=== PATIENT | female | born 1940 | race Caucasian/White ===

== ENCOUNTER 2020-10-01 14:55 | Inpatient (IN) ==
[2020-10-01] MEDS ORDERED: IOPAMIDOL 100 ML BOTTLE IV ONE (14:56)
--- NOTE | 2020-10-01 15:32 | Cat Scan Report ---
History: Stroke symptoms beginning on Thursday, prior history of skin cancer TECHNIQUE: The brain was imaged without contrast at 2.5 mm intervals. The radiation exposure was limited using dose reduction technology. FINDINGS: There is a loss of donovan-white matter differentiation laterally in the left parietal lobe, near the level of the each of the left lateral ventricle. This may represent an acute/subacute nonhemorrhagic infarct. Measures approximately 2 cm in size. There is mild edema in this region. There are chronic ischemic or degenerative changes in the external capsules bilaterally and mild white matter disease in the centrum semiovale in the frontal and parietal lobes. There is no hemorrhage or mass effect. Mild generalized atrophy is present. The ventricles are normal in size. No abnormal extra-axial fluid collection is present. Bone windows show no skull lesion. IMPRESSION: Recent nonhemorrhagic infarct anteriorly and laterally in the left parietal lobe. Age-related degenerative changes Dr. Rivera was called with the report Interpreted and Authenticated by: Kin Guzman 10/01/20
[2020-10-01 15:42] LABS: POC Blood Urea Nitrogen 15 mg/dL (6-20); POC CO2 29 mmol/L (22-30); POC Calcium, Ionized 1.25 mmEq/L (1.16-1.32); POC Chloride 100 mEq/L (96-108); POC Creatinine 1.1 mg/dL (0.6-1.2); POC Glucose, Random 87 mg/dL (70-105); POC Hematocrit 39 % (36-48); POC Sodium 138 mEq/L (133-145)
[2020-10-01 15:58] LABS: POC INR 1.1 (0.8-1.2); POC Pro Time 12.9 sec (11.9-14.5)
[2020-10-01 16:17] LABS: Basophils # (Auto) 0.09 K/mcL (0.00-0.20); Basophils % (Auto) 1.2 % (0.0-2.0); Eosinophils # (Auto) 0.22 K/mcL (0.00-0.70); Eosinophils % (Auto) 2.8 % (0.0-7.0); Hematocrit 37.7 % (36.0-48.0); Hemoglobin 12.4 g/dL (12.0-15.0); Lymphocytes # (Auto) 1.62 K/mcL (1.50-4.80); Lymphocytes % (Auto) 20.7 % (15.0-49.0); Mean Cell Volume 96.4 fL (80.0-100.0); Mean Corpuscular HGB Conc 32.9 g/dL (31.0-36.0); Mean Platelet Volume 9.8 fL (7.4-10.4); Monocytes # (Auto) 0.96 K/mcL (0.10-0.90); Monocytes % (Auto) 12.3 % (1.0-12.0); Platelet Count 288 K/mcL (140-440); RBC 3.91 M/mcL (4.00-5.20); Red Cell Distribution Width 12.2 % (11.5-14.5); WBC 7.8 K/mcL (4.5-11.0)
[2020-10-01 16:34] LABS: Partial Thromboplastin Time 33.2 sec (20.0-37.0)
[2020-10-01] MEDS ORDERED: ASPIRIN 325 MG ENTERIC COATED TABLET PO ONE (17:33)
--- NOTE | 2020-10-01 17:37 | Emergency Department Note ---
HPI General Chief complaint: Stroke Symptoms Stated complaint: possible TIA Time Seen by Provider: 10/01/20 15:01 Source: patient Mode of arrival: ambulatory Limitations: no limitations History of Present Illness HPI Narrative: Patient is a 80-year-old lady who arrives emergency department by private vehicle accompanied by her daughter complaining of strokelike symptoms. History is provided by the patient with some supplemental information from her daughter. She says she was in her usual state of health when she awoke on Thursday morning and did some yard work. She then went to speak to some neighbors and noticed that she was having difficulty getting some of her words out. She continued to appreciate the subtle difficulty speaking off and on throughout the day Thursday and Thursday. Today, her daughter became aware of this so she decided to bring her to the emergency department for further evaluation. Nothing seems to make her symptoms any better or worse. She denies any associated headache numbness or tingling. The last time she talked to anybody with what appeared to be normal speech was Thursday night at dinner. Related Data Home Medications Medication Instructions Recorded Confirmed benazepril 40 mg PO DAILY 04/02/16 10/01/20 estradiol 0.25 mg PO DAILY 04/02/16 10/01/20 potassium chloride 20 meq PO DAILY 04/02/16 10/01/20 albuterol sulfate 2.5 mg INHALATION Q6H PRN ml 01/22/18 10/01/20 furosemide 20 mg tablet 20 mg PO QDAY 01/22/18 10/01/20 levothyroxine 50 mcg tablet 50 mcg PO QDAY 01/22/18 10/01/20 multivitamin 1 tab PO QDAY 01/22/18 10/01/20 calcium carbonate 600 mg calcium 600 mg PO QDAY tab 02/09/18 10/01/20 (1,500 mg) tablet amlodipine 5 mg tablet 5 mg PO DAILY tab 03/09/18 10/01/20 metoprolol succinate 50 mg PO DAILY 06/08/19 10/01/20 Previous Rx's Medication Instructions Recorded glycopyrrolate 9 mcg-formoterol 2 puff INHALATION BID #10.7 g 08/31/20 4.8 mcg HFA aerosol inhaler Allergies Allergy/AdvReac Type Severity Reaction Status Date / Time No Known Drug Allergies Allergy Verified 10/01/20 14:59 Review of Systems ROS ROS Narrative: Narrative: Constitutional: Reports chills; Denies fever Cardiovascular: Denies chest pain Gastrointestinal: Denies abdominal pain and nausea PFSH Narrative Patient History Narrative: Narrative: Patient does note that she has been told she has been in atrial fibrillation in the past. Medical/Surgical/Family History All Active Problems (Updated 10/02/20 @ 07:21 by Brian Rivera DO) Acute ischemic multifocal anterior circulation stroke (Acute) COPD (chronic obstructive pulmonary disease) (Acute) Nocturnal hypoxia (Chronic) History of MAC infection (Chronic) Cough (Chronic) Atypical mycobacterial disease (Chronic) Hypothyroidism, unspecified (Chronic) Skin cancer, basal cell (Chronic) SVT (supraventricular tachycardia) (Chronic) Urethral discharge (Chronic 06/03/13) Squamous cell carcinoma of skin, site unspecified (Chronic) Pneumonia, organism unspecified (Chronic) Mycobacterium avium complex (Chronic) Hypertension (Chronic) Hyperlipidemia (Chronic) Gross hematuria (Chronic 06/03/13) Colon polyps (Chronic) Bronchiectasis without acute exacerbation (Chronic) Upper respiratory infection (Acute) Medical History (Updated 10/02/20 @ 07:21 by Brian Rivera DO) Atypical mycobacterial disease Bronchiectasis without acute exacerbation Colon polyps Cough Gross hematuria (06/03/13) History of MAC infection Hyperlipidemia Hypertension Hypothyroidism, unspecified Mycobacterium avium complex Nocturnal hypoxia Pneumonia, organism unspecified Skin cancer, basal cell removal 1994 Squamous cell carcinoma of skin, site unspecified Right roldan, removed 12/2010 SVT (supraventricular tachycardia) Upper respiratory infection Urethral discharge (06/03/13) Surgical History History of appendectomy 1940's History of D&C (~06/2003) History of lung biopsy (~2008) Dr Hess History of surgery (~04/2006) I & D-periurethral gland abscess History of surgery Removal squamous cell right roldan & basal cell carcinoma removal from face History of total abdominal hysterectomy and bilateral salpingo-oophorectomy (~04/2004) Family History Father Congestive heart failure Hypertension, essential Prostate cancer Mother Bile duct cancer Arthritis Hypertension, essential Sister Hypertension, essential Social History Smoking Status: Never smoker Alcohol Intake Frequency: 2+ drinks per day Substance Use: does not use Exam Narrative Narrative: Gen -patient is awake and alert and in no acute distress. HEENT -head is atraumatic. There is no conjunctival pallor or scleral icterus. CV -S1-S2 regular rate and rhythm. Resp -breathing is nonlabored. Lungs are clear to auscultation bilaterally. There is no cyanosis. Derm -skin is warm and dry. MSK -present extremities are atraumatic. Psych -patient has appropriate affect. Neuro -patient answers questions appropriately and is oriented to person, place, time and situation. There is subtle expressive aphasia without significant dysarthria there is no facial muscular asymmetry. Extraocular motion is intact. Tongue protrudes in the midline. Palate elevates symmetrically. Shoulder shrug is symmetric. Muscle strength is 5 out of 5 in all 4 extremities. Peripheral sensation is grossly intact to light touch bilaterally. There is no baog-oo-ozep abnormality. There is no [id number] abnormality. Patient's gait is intact. NIH stroke scale is 1 General Limitations: no limitations Course Vital Signs Vital signs: Vital Signs Temperature 97.5 F 10/01/20 14:56 Pulse Rate 78 10/01/20 14:56 Respiratory Rate 18 10/01/20 14:56 Blood Pressure 163/88 10/01/20 14:56 Pulse Oximetry (%) 96 10/01/20 14:56 Temperature 98.4 F 10/02/20 03:10 Pulse Rate 63 10/02/20 04:01 Respiratory Rate 19 10/02/20 04:01 Blood Pressure 98/68 10/02/20 04:01 Pulse Oximetry (%) 95 10/02/20 04:01 [facility] Narrative Medical decision making narrative: Patient presents with new onset strokelike symptoms. Given the minor nondisabling nature of her symptoms and the time course of the onset of her symptoms she is not a candidate for IV thrombolytics and seems very unlikely she would have a large vessel occlusion. CT scan reveals a subacute infarct in the area I would expect to result in the patient's symptoms. I discussed this with her and her daughter. I discussed the need for neurologic consultation and further risk factor modification. The patient's daughter lives in [place] so she requested I reach out to her neurologist in [place]. I did speak with Dr. Aguilar at [facility]. He agrees with my plan for admission for carotid imaging and plan to initiate therapy with aspirin and a statin and possibly anticoagulation given the patient's atrial fibrillation. He personally follows seizure patients but does note that there are other neurologist available at [facility] for the patient to follow-up with should she choose to seek follow-up care there. I discussed the patient's history examination and diagnostic findings with Dr. Yang, who agrees with the plan of care and accepts admission. He did request a CT angiogram to rule out any vascular abnormalities which was obtained and normal. Critical care time I provided at least 15 minutes of critical care time. This was separate from any separately billable procedures. The patient was evaluated for sudden onset neurologic symptoms and possible acute ischemic stroke. She was assessed for eligibility for endovascular intervention and monitored for any signs of n eurologic deterioration. The patient was closely monitored for response to treatment and stability of vital signs throughout their emergency department stay. Lab Data Lab results reviewed: Yes I reviewed the patient's lab results. Result diagrams: 10/02/20 04:16 10/02/20 04:16 Labs: Lab Results 10/01/20 10/01/20 10/01/20 Range/Units 15:27 15:27 15:27 WBC 7.8 (4.5-11.0) K/mcL RBC 3.91 L (4.00-5.20) M/mcL Hgb 12.4 (12.0-15.0) g/dL Hct 37.7 (36.0-48.0) % POC Hct 39 (36-48) % MCV 96.4 (80.0-100.0) fL MCH 31.7 (26.0-34.0) pg MCHC 32.9 (31.0-36.0) g/dL RDW 12.2 (11.5-14.5) % Plt Count 288 (140-440) K/mcL MPV 9.8 (7.4-10.4) fL Neut % (Auto) 63.0 (38.0-78.0) % Lymph % (Auto) 20.7 (15.0-49.0) % [place] % (Auto) 12.3 H (1.0-12.0) % Eos % (Auto) 2.8 (0.0-7.0) % Baso % (Auto) 1.2 (0.0-2.0) % Lymph # (Auto) 1.62 (1.50-4.80) K/mcL [place] # (Auto) 0.96 H (0.10-0.90) K/mcL Eos # (Auto) 0.22 (0.00-0.70) K/mcL Baso # (Auto) 0.09 (0.00-0.20) K/mcL Absolute Neutrophils 4.92 (1.80-8.00) K/mcL POC PT 12.9 (11.9-14.5) sec PT 14.0 (11.9-14.5) sec POC INR 1.1 (0.8-1.2) INR 1.0 (0.9-1.1) APTT 33.2 (20.0-37.0) sec POC Sodium 138 (133-145) mEq/L POC Potassium 4.0 (3.3-5.1) mEql/L POC Chloride 100 (96-108) mEq/L POC Total CO2 29 (22-30) mmol/L POC BUN 15 (6-20) mg/dL POC Creatinine 1.1 (0.6-1.2) mg/dL POC Glucose 87 (70-105) mg/dL POC WB Ioniz Calcium 1.25 (1.16-1.32) mmEq/L Urine Color Urine Appearance (Clear) Urine pH (5.0-9.0) Ur Specific [place] (1.000-1.035) Urine Protein (Negative) mg/dL Urine Glucose (UA) (Negative) mg/dL Urine Ketones (Negative) mg/dL Urine Occult Blood (Negative) mg/dL Urine Nitrate (Negative) Urine Bilirubin (Negative) mg/dL Urine Urobilinogen mg/dL Ur Leukocyte Esterase (Negative) /ug Urine RBC (0-3) /hpf Urine WBC (0-4) /hpf Ur Squamous Epith Cells (0-4) /hpf Urine Bacteria (0) /hpf Ur Culture Indicated? 10/01/20 Range/Units 16:35 WBC (4.5-11.0) K/mcL RBC (4.00-5.20) M/mcL Hgb (12.0-15.0) g/dL Hct (36.0-48.0) % POC Hct (36-48) % MCV (80.0-100.0) fL MCH (26.0-34.0) pg MCHC (31.0-36.0) g/dL RDW (11.5-14.5) % Plt Count (140-440) K/mcL MPV (7.4-10.4) fL Neut % (Auto) (38.0-78.0) % Lymph % (Auto) (15.0-49.0) % [place] % (Auto) (1.0-12.0) % Eos % (Auto) (0.0-7.0) % Baso % (Auto) (0.0-2.0) % Lymph # (Auto) (1.50-4.80) K/mcL [place] # (Auto) (0.10-0.90) K/mcL Eos # (Auto) (0.00-0.70) K/mcL Baso # (Auto) (0.00-0.20) K/mcL Absolute Neutrophils (1.80-8.00) K/mcL POC PT (11.9-14.5) sec PT (11.9-14.5) sec POC INR (0.8-1.2) INR (0.9-1.1) APTT (20.0-37.0) sec POC Sodium (133-145) mEq/L POC Potassium (3.3-5.1) mEql/L POC Chloride (96-108) mEq/L POC Total CO2 (22-30) mmol/L POC BUN (6-20) mg/dL POC Creatinine (0.6-1.2) mg/dL POC Glucose (70-105) mg/dL POC WB Ioniz Calcium (1.16-1.32) mmEq/L Urine Color Yellow Urine Appearance Hazy A (Clear) Urine pH 7.0 (5.0-9.0) Ur Specific [place] 1.005 (1.000-1.035) Urine Protein Negative (Negative) mg/dL Urine Glucose (UA) Negative (Negative) mg/dL Urine Ketones Negative (Negative) mg/dL Urine Occult Blood 0.03 (Negative) mg/dL Urine Nitrate Negative (Negative) Urine Bilirubin Negative (Negative) mg/dL Urine Urobilinogen Negative mg/dL Ur Leukocyte Esterase 500 A (Negative) /ug Urine RBC 1 (0-3) /hpf Urine WBC 34 H (0-4) /hpf Ur Squamous Epith Cells 2 (0-4) /hpf Urine Bacteria None (0) /hpf Ur Culture Indicated? yes ED POC Tests ED POC Tests: BC - SARS Antigen Negative EKG Data EKG #1: EKG attestation: Yes I reviewed and interpreted this EKG. EKG results narrative: EKG performed at 3:22 PM: Atrial fibrillation, rate 85. Normal QRS and T wave morphology. No ST segment deviation. Normal QRS and QTc duration. No old EKG immediately available for comparison. EKG was interpreted by me. Discharge Plan Patient/Caregiver Discharge Instructions Pt seen by GLASS TINTER/PA only: No Clinical Impression: Acute ischemic multifocal anterior circulation stroke Qualifiers: Laterality: left Qualified Code(s): I63.522 - Cerebral infarction due to unspecified occlusion or stenosis of left anterior cerebral artery Patient Disposition: Xfer As Inpt ([facility]) Condition: Good Discharge Date/Time: 10/01/20 22:02
[2020-10-01 18:21] LABS: Appearance,Urine HAZY (Clear); Bilirubin,Urine Negative (Negative); Color,Urine YELLOW; Culture Indicated,Urine yes; Glucose,Urine (UA) Negative (Negative); Ketones,Urine Negative (Negative); Leukocyte Esterase,Urine 500 /ug (Negative); Nitrate,Urine Negative (Negative); Protein,Urine Negative (Negative); Specific Gravity,Urine 1.005 (1.000-1.035); Urine Blood 0.03 mg/dL (Negative); Urine RBC 1 /hpf (0-3); Urine Squamous Epithelial Cell 2 /hpf (0-4); Urine WBC 34 /hpf (0-4); Urobilinogen,Urine Negative
--- NOTE | 2020-10-01 18:56 | Cat Scan Report ---
History: Transient ischemic attack with aphasia and infarct in left parietal lobe TECHNIQUE: Following injection of intravenous nonionic contrast the head and neck were imaged from the level of the ascending aorta to the top of the head. Sagittal and coronal reformats were created of the head and neck separately and curvilinear reformatted images of the carotid arteries were obtained. FINDINGS: NECK: There is bronchiectasis in the right upper lobe. A peripheral pleural-based infiltrate is present in the posterior apical segment of the right upper lobe. An enlarged lymph node is present in the pretracheal retrocaval space which measures 1.5 x 1.6 cm. Aortic arch and great vessels arising from the aorta are normal. In the carotid bifurcations there is small amount calcified plaque. This causing approximately 30% stenosis at the origin left internal carotid and approximately 25% stenosis of the origin of the right internal carotid. The on the origins, both internal carotids are normal. The external carotids are normal and symmetric without evidence of plaque formation. The vertebral arteries are normal and symmetric without evidence of stenosis or thrombosis. There is severe disc space narrowing degeneration at C5-6 and C6-7. Arthritis is present in the facet joints bilaterally throughout the mid and lower neck. Head: The t[place] of [place] is normal. The anterior and posterior communicating arteries are patent. The anterior and middle cerebral arteries are normal in caliber and symmetric. There is no evidence of intracranial stenosis or thrombosis. Normal blood flow is seen in the left parietal lobe in the region where the subtle infarct was identified on the preceding unenhanced head CT. The vertebral arteries, basilar artery and posterior fossa circulation are normal. There is no evidence of an aneurysm or vascular malformation. No venous anomaly is seen. IMPRESSION: Normal intracranial arterial circulation. Mild atherosclerosis in the carotid bifurcations bilaterally with nonhemodynamically significant stenoses. Bronchiectasis and pneumonia in the right upper lobe Interpreted and Authenticated by: Kin Guzman 10/01/20
--- NOTE | 2020-10-01 19:57 | Internal Med History&Physical ---
HPI History of Present Illness Patient information: Note initiated : 10/01/20 at 7:56 pm Service Date, if different from initiated Date: [] Patient: Jade Todd a 80 y/o F admitted on for possible TIA. Chief Complaint: Kimberlee talking/weakness History of present illness: Ms. Todd is a 80 year old F with history of bronchiectasis on nocturnal oxygen/HTN/hypothyroidism who presents to the ER with 2 days onset of strokelike symptoms including difficulty expressing herself and weakness. Patient's daughter Helena who lives in [place] became concerned and drove to her home at [place] after she talked to her on phone. She tried to work with the symptoms for a couple of days but did not seek medical help however with increasing concerns from continued speech deficits she brought her to the ER for evaluation. Initial work-up in the ER was consistent with acute CVA on CT head. Patient was beyond the window for TPA. Neurology was consulted and recommended hospitalization for further work-up of CVA. Patient was started on aspirin. At the time of my evaluation patient is accompanied with her daughter. She was able to answer most the questions. She denies double vision/seizure-like symptoms/thunderclap headache/tearing neck pain/incontinence or unilateral weakness. She denies abnormal sensation but endorses to difficulty word finding. She further denies chest palpitation/chest pain, cough, fever, chills, joint pain or swelling or rash. She denies changes in medications. She denies recent hospitalization or prior similar episodes or history of atrial fibrillation. Patient was found to be in atrial fibrillation Review of systems 10 point review system was performed and is negative except for ones discussed above PFSH PFSH All Active Problems COPD (chronic obstructive pulmonary disease) (Acute) Nocturnal hypoxia (Chronic) History of MAC infection (Chronic) Cough (Chronic) Atypical mycobacterial disease (Chronic) Hypothyroidism, unspecified (Chronic) Skin cancer, basal cell (Chronic) SVT (supraventricular tachycardia) (Chronic) Urethral discharge (Chronic 06/03/13) Squamous cell carcinoma of skin, site unspecified (Chronic) Pneumonia, organism unspecified (Chronic) Mycobacterium avium complex (Chronic) Hypertension (Chronic) Hyperlipidemia (Chronic) Gross hematuria (Chronic 06/03/13) Colon polyps (Chronic) Bronchiectasis without acute exacerbation (Chronic) Upper respiratory infection (Acute) Medical History Atypical mycobacterial disease Bronchiectasis without acute exacerbation Colon polyps Cough Gross hematuria (06/03/13) History of MAC infection Hyperlipidemia Hypertension Hypothyroidism, unspecified Mycobacterium avium complex Nocturnal hypoxia Pneumonia, organism unspecified Skin cancer, basal cell removal 1994 Squamous cell carcinoma of skin, site unspecified Right roldan, removed 12/2010 SVT (supraventricular tachycardia) Upper respiratory infection Urethral discharge (06/03/13) Surgical History History of appendectomy 1940's History of D&C (~06/2003) History of lung biopsy (~2008) Dr Hess History of surgery (~04/2006) I & D-periurethral gland abscess History of surgery Removal squamous cell right roldan & basal cell carcinoma removal from face History of total abdominal hysterectomy and bilateral salpingo-oophorectomy (~04/2004) Family History Father Congestive heart failure Hypertension, essential Prostate cancer Mother Bile duct cancer Arthritis Hypertension, essential Sister Hypertension, essential Social History alcohol intake frequency: 2+ drinks per day substance use type: does not use MEDS/ALLERGIES Home Medications and Allergies Home Medications Medication Instructions Recorded Confirmed Type benazepril 40 mg PO DAILY 04/02/16 10/01/20 History estradiol 0.25 mg PO DAILY 04/02/16 10/01/20 History potassium chloride 20 meq PO DAILY 04/02/16 10/01/20 History albuterol sulfate 2.5 mg INHALATION Q6H PRN ml 01/22/18 10/01/20 History furosemide 20 mg tablet 20 mg PO QDAY 01/22/18 10/01/20 History levothyroxine 50 mcg tablet 50 mcg PO QDAY 01/22/18 10/01/20 History multivitamin 1 tab PO QDAY 01/22/18 10/01/20 History calcium carbonate 600 mg calcium 600 mg PO QDAY tab 02/09/18 10/01/20 History (1,500 mg) tablet amlodipine 5 mg tablet 5 mg PO DAILY tab 03/09/18 10/01/20 History metoprolol succinate 50 mg PO DAILY 06/08/19 10/01/20 History glycopyrrolate 9 mcg-formoterol 2 puff INHALATION BID #10.7 g 08/31/20 10/01/20 Rx 4.8 mcg HFA aerosol inhaler Allergies Allergy/AdvReac Type Severity Reaction Status Date / Time No Known Drug Allergies Allergy Verified 10/01/20 14:59 EXAM Constitutional Vitals: Temp Pulse Resp BP Pulse Ox 97.5 F 114 H 26 H 163/100 94 10/01/20 14:56 10/01/20 18:38 10/01/20 18:38 10/01/20 18:38 10/01/20 18:38 DATA Data Completed and Pending Labs: Labs from last 24 hours 10/01/20 10/01/20 10/01/20 16:35 15:27 15:27 WBC RBC Hgb Hct POC Hct 39 MCV MCH MCHC RDW Plt Count MPV Neut % (Auto) Lymph % (Auto) [place] % (Auto) Eos % (Auto) Baso % (Auto) Lymph # (Auto) [place] # (Auto) Eos # (Auto) Baso # (Auto) Absolute Neutrophils POC PT 12.9 PT 14.0 POC INR 1.1 INR 1.0 APTT 33.2 POC Sodium 138 POC Potassium 4.0 POC Chloride 100 POC Total CO2 29 POC BUN 15 POC Creatinine 1.1 POC Glucose 87 POC WB Ioniz Calcium 1.25 Urine Color Yellow Urine Appearance Hazy A Urine pH 7.0 Ur Specific [place] 1.005 Urine Protein Negative Urine Glucose (UA) Negative Urine Ketones Negative Urine Occult Blood 0.03 Urine Nitrate Negative Urine Bilirubin Negative Urine Urobilinogen Negative Ur Leukocyte Esterase 500 A Urine RBC 1 Urine WBC 34 H Ur Squamous Epith Cells 2 Urine Bacteria None Ur Culture Indicated? yes 10/01/20 15:27 WBC 7.8 RBC 3.91 L Hgb 12.4 Hct 37.7 POC Hct MCV 96.4 MCH 31.7 MCHC 32.9 RDW 12.2 Plt Count 288 MPV 9.8 Neut % (Auto) 63.0 Lymph % (Auto) 20.7 [place] % (Auto) 12.3 H Eos % (Auto) 2.8 Baso % (Auto) 1.2 Lymph # (Auto) 1.62 [place] # (Auto) 0.96 H Eos # (Auto) 0.22 Baso # (Auto) 0.09 Absolute Neutrophils 4.92 POC PT PT POC INR INR APTT POC Sodium POC Potassium POC Chloride POC Total CO2 POC BUN POC Creatinine POC Glucose POC WB Ioniz Calcium Urine Color Urine Appearance Urine pH Ur Specific [place] Urine Protein Urine Glucose (UA) Urine Ketones Urine Occult Blood Urine Nitrate Urine Bilirubin Urine Urobilinogen Ur Leukocyte Esterase Urine RBC Urine WBC Ur Squamous Epith Cells Urine Bacteria Ur Culture Indicated? A/P Narrative A/P Narrative: * Acute ischemic left parietal lobe CVA- Continue aspirin/statin. History of atrial fibrillation and high risk cardioembolic CVA. Check MRI/echocardiogram. Consider anticoagulation for CVA prophylaxis if no evidence of large CVA. Maintain permissive hypertension. Aggressive stroke rehab/neurochecks therapies * A. fib-new onset. Continue rate control measures. * History of hypertension continue amlodipine/metoprolol after 24 hours maintenance of permissive hypertension * Upper lobe pneumonia start antibiotic coverage * History of reactive disease/bronchiectasis follows up with neurology. Continue bronchodilators * History of COPD Plan * Inpatient PCU admission * Maintain permissive hypertension * Rate control measures * Pre-existing medical condition management home meds * PT OT/nutrition support/aggressive therapies afib ischemic cva pneumonia bronchiectasis Time Spent With Patient Time: Total time spent is greater than 50% in coordination of care (as documented) at patient's floor/unit and/or counseling patient:
[2020-10-01] MEDS ORDERED: METOPROLOL TARTRATE 5 MG/5 ML VIAL IV PRN (22:45)
[2020-10-01] MEDS ORDERED: POTASSIUM CHLORIDE 20 MEQ PACKET PO PRN (22:45)
[2020-10-01] MEDS ORDERED: POLYETHYLENE GLYCOL 3350 17 GM PACKET PO PRN (22:45)
[2020-10-01] MEDS ORDERED: hydrALAZINE 20 MG/ML VIAL IV PRN (22:45)
[2020-10-01] MEDS ORDERED: ACETAMINOPHEN 325 MG TABLET PO PRN (22:45)
[2020-10-01] MEDS ORDERED: POTASSIUM CHLORIDE 40 MEQ in DEXTROSE 5% IN WATER 500 ML IV PRN (22:45)
[2020-10-01] MEDS ORDERED: MAGNESIUM SULFATE 2 GM/50 ML BAG IV PRN (22:45)
[2020-10-01] MEDS ORDERED: ONDANSETRON 4 MG/2 ML VIAL IV PRN (22:45)
[2020-10-01] MEDS ORDERED: MELATONIN 3 MG TABLET PO PRN (22:45)
[2020-10-01] MEDS ORDERED: BISACODYL 10 MG SUPP.RECT PR PRN (22:45)
[2020-10-01] MEDS ORDERED: ACETAMINOPHEN 650 MG/65 ML BAG IV PRN (22:45)
[2020-10-01] MEDS ORDERED: ONDANSETRON 4 MG ODT TABLET SL PRN (22:45)
[2020-10-01] MEDS ORDERED: IPRATROPIUM/ALBUTEROL 3 ML AMPUL.NEB NEB ONE (23:13)
[2020-10-01] MEDS ORDERED: BUDESONIDE 0.5 MG/2 ML AMPUL.NEB ONE (23:13)
[2020-10-01] MEDS: BUDESONIDE 0.5 MG/2 ML AMPUL.NEB NEB SCH (23:14)
[2020-10-01] MEDS: IPRATROPIUM/ALBUTEROL 3 ML AMPUL.NEB NEB SCH (23:14)
[2020-10-01] MEDS ORDERED: HEPARIN 5,000 UNIT/ML VIAL ONE (23:15)
[2020-10-01] MEDS: PIPERACILLIN SODIUM/TAZOBACTAM 3.375 GM in DEXTROSE 5% IN WATER 50 ML IV SCH (23:22)
[2020-10-02] MEDS: DOCUSATE SODIUM 100 MG CAPSULE PO SCH ×3 (00:43→20:13)
[2020-10-02] MEDS: ATORVASTATIN 20 MG TABLET PO SCH ×2 (00:43→20:11)
[2020-10-02] MEDS: CYANOCOBALAMIN (VITAMIN B-12) 500 MCG TABLET PO SCH ×3 (00:44→20:12)
[2020-10-02] MEDS: SENNOSIDES/DOCUSATE SODIUM 1 TAB TABLET PO SCH ×2 (00:44→20:14)
[2020-10-02] MEDS: 0.9 % SODIUM CHLORIDE 10 ML SYRINGE IV SCH ×4 (00:44→20:14)
[2020-10-02] MEDS: HEPARIN 5,000 UNIT/ML VIAL SQ SCH ×3 (00:44→20:11)
[2020-10-02] MEDS: IPRATROPIUM/ALBUTEROL 3 ML AMPUL.NEB NEB SCH ×5 (02:47→18:48)
[2020-10-02] MEDS: DILTIAZEM 125 MG in 0.9 % SODIUM CHLORIDE 100 ML IV SCH ×3 (04:09→22:13)
[2020-10-02] MEDS ORDERED: IPRATROPIUM/ALBUTEROL 3 ML AMPUL.NEB NEB ONE (04:13)
[2020-10-02] MEDS: PIPERACILLIN SODIUM/TAZOBACTAM 3.375 GM in DEXTROSE 5% IN WATER 50 ML IV SCH (05:21)
[2020-10-02 05:52] LABS: Basophils # (Auto) 0.09 K/mcL (0.00-0.20); Basophils % (Auto) 1.1 % (0.0-2.0); Eosinophils # (Auto) 0.24 K/mcL (0.00-0.70); Hematocrit 36.9 % (36.0-48.0); Hemoglobin 11.8 g/dL (12.0-15.0); Lymphocytes # (Auto) 1.55 K/mcL (1.50-4.80); Lymphocytes % (Auto) 19.3 % (15.0-49.0); Mean Cell Volume 97.4 fL (80.0-100.0); Mean Platelet Volume 9.7 fL (7.4-10.4); Monocytes # (Auto) 1.06 K/mcL (0.10-0.90); Monocytes % (Auto) 13.2 % (1.0-12.0); Neutrophils % (Auto) 63.4 % (38.0-78.0); Platelet Count 274 K/mcL (140-440); RBC 3.79 M/mcL (4.00-5.20); Red Cell Distribution Width 12.1 % (11.5-14.5)
[2020-10-02 06:23] LABS: ALT/SGPT 14 U/L (<40); AST/SGOT 24 U/L (<32); Albumin/Globulin Ratio 1.4 (1.0-2.3); Alkaline Phosphatase 64 U/L (39-117); Bilirubin,Direct < 0.2 mg/dL (0-0.3); Bilirubin,Total 0.4 mg/dL (0.1-1.0); Blood Urea Nitrogen 19 mg/dL (8-23); Calcium 9.4 mg/dL (8.6-10.4); Carbon Dioxide 27 mmol/L (22-30); Chloride 102 mmol/L (96-108); Globulin 2.8 gm/dL (2.2-3.7); Glomerular Filtration Rate 43; Glucose 88 mg/dL (70-105); Lactate Dehydrogenase 224 U/L (135-225); Phosphorous 3.8 mg/dL (2.5-4.5); Triglycerides 61 mg/dL (<150); Uric Acid 5.4 mg/dL (2.5-8.0)
[2020-10-02] MEDS: BUDESONIDE 0.5 MG/2 ML AMPUL.NEB NEB SCH ×2 (09:27→18:48)
[2020-10-02] MEDS: THIAMINE 100 MG TABLET PO SCH (09:35)
[2020-10-02] MEDS: MULTIVIT,THER IRON,CA,FA & MIN 1 TABLET PO SCH (09:36)
[2020-10-02] MEDS: ASPIRIN 81 MG TAB.CHEW CHEWED SCH (09:54)
--- NOTE | 2020-10-02 10:46 | Internal Med Progress Note ---
SUBJECTIVE Subjective Patient information: Note initiated : 10/02/20 at 10:38 am Service Date, if different from initiated Date: [] Patient: Jade Todd a 80 y/o F admitted on 10/01/20 for possible TIA. Chief Complaint: [] Interval history: Ms. Todd is a 80 year old F with history of bronchiectasis on nocturnal oxygen/HTN/hypothyroidism who presents to the ER with 2 days onset of strokelike symptoms including difficulty expressing herself and weakness. Patient's daughter Helena who lives in [place] became concerned and drove to her home at [place] after she talked to her on phone. She tried to work with the symptoms for a couple of days but did not seek medical help however with increasing concerns from continued speech deficits she brought her to the ER for evaluation. Initial work-up in the ER was consistent with acute CVA on CT head. Patient was beyond the window for TPA. Neurology was consulted and recommended hospitalization for further work-up of CVA. Patient was started on aspirin. At the time of my evaluation patient is accompanied with her daughter. She was able to answer most the questions. She denies double vision/seizure-like symptoms/thunderclap headache/tearing neck pain/incontinence or unilateral weakness. She denies abnormal sensation but endorses to difficulty word finding. She further denies chest palpitation/chest pain, cough, fever, chills, joint pain or swelling or rash. She denies changes in medications. She denies recent hospitalization or prior similar episodes or history of atrial fibrillation. Patient was found to be in atrial fibrillation 10/02-patient seen in room. Clinically improved since previous day. Systolics around 160s. Currently on aspirin/statin. No overnight fever chills. MRI echo done this morning. Daughter at bedside. Discussed treatment plan including in itiation of anticoagulation in the next 7 to 10 days depending on size of CVA and to minimize chance of hemorrhagic conversion. Remains in atrial fibrillation rate controlled. Restarted on home medications. Continuing antibiotics for right upper lobe pneumonia. Mild pyuria on antibiotic coverage. Await cultures Constitutional Vitals: Vital Signs Temp Pulse Resp BP Pulse Ox 98.4 F 79 16 98/68 97 10/02/20 03:10 10/02/20 09:37 10/02/20 09:37 10/02/20 04:01 10/02/20 09:37 Period Temp Pulse Resp BP Sys/[place] Pulse Ox Last 24 Hr 97.5 F-99.1 F 62-148 12-37 98-181/61-148 91-99 Intake and Output 10/01/20 10/02/20 10/02/20 21:59 05:59 13:59 Intake Total 575 Output Total 300 Balance 575 -300 Weight 58.967 kg 59.874 kg Alert oriented Minimal expressive aphasia improving GCS 15 Nonlabored breathing Minimal anxiety Intake & Output: Intake & Output 10/01/20 10/02/20 10/02/20 21:59 05:59 13:59 Intake Total 575 Output Total 300 Balance 575 -300 Weight 58.967 kg 59.874 kg Intake: IV 100 Zosyn 3.375 gm In Dextrose 5% 100 in Water 50 ml @ 100 mls/hr IV Q6H [facility] Rx#:[id number] Oral 475 Output: Void Amount 300 Other: Meal [place] sandwich Percent of Meal Consumed 100% Feeding Ability Independent Stool Size Small Stool Color Brown Stool Consistency Formed # Voids 1 # Bowel Movements 1 OBJ DATA Labs CBC & Chem 7: 10/02/20 04:16 10/02/20 04:16 Labs: Abnormal Lab Results 10/02/20 10/02/20 10/01/20 04:16 04:16 16:35 RBC 3.79 L Hgb 11.8 L [place] % (Auto) 13.2 H [place] # (Auto) 1.06 H Creatinine 1.2 H Urine Appearance Hazy A Ur Leukocyte Esterase 500 A Urine WBC 34 H 10/01/20 15:27 RBC 3.91 L Hgb [place] % (Auto) 12.3 H [place] # (Auto) 0.96 H Creatinine Urine Appearance Ur Leukocyte Esterase Urine WBC Meds: Medications Acetaminophen (Acetaminophen 325 Mg Tablet) 650 mg PO Q4-6HP PRN; Protocol PRN Reason: Per Pain Protocol/Fever > 101 Albuterol/Ipratropium (Ipratropium/Albuterol 3 Ml Ampul.Neb) 3 ml NEB Q4HRT [facility] Last Admin: 10/02/20 09:26 Dose: 3 ml Documented by: Aspirin (Aspirin 81 Mg Tab.Chew) 324 mg CHEWED DAILY [facility] Last Admin: 10/02/20 09:54 Dose: 324 mg Documented by: Atorvastatin Calcium (Atorvastatin 20 Mg Tablet) 40 mg PO HS [facility] Last Admin: 10/02/20 00:43 Dose: Not Given Documented by: Bisacodyl (Bisacodyl 10 Mg Supp.Rect) 10 mg [place] Q2-3DAYS PRN PRN Reason: Constipation Budesonide (Budesonide 0.5 Mg/2 Ml Ampul.Neb) 0.5 mg NEB Q12 [facility] Last Admin: 10/02/20 09:27 Dose: 0.5 mg Documented by: Cyanocobalamin (Cyanocobalamin (Vitamin B-12) 500 Mcg Tablet) 1,000 mcg PO BID [facility] Stop: 10/06/20 09:01 Last Admin: 10/02/20 09:35 Dose: 1,000 mcg Documented by: Docusate Sodium (Docusate Sodium 100 Mg Capsule) 100 mg PO BID [facility] Last Admin: 10/02/20 09:35 Dose: 100 mg Documented by: Heparin Sodium (Porcine) (Heparin 5,000 Unit/Ml Vial) 5,000 unit SQ Q12 [facility] Last Admin: 10/02/20 09:35 Dose: 5,000 unit Documented by: Hydralazine HCl (Hydralazine 20 Mg/Ml Vial) 10 mg IV Q4-6HP PRN PRN Reason: Hypertension Potassium Chloride 40 meq/ (Dextrose) 520 mls @ 130 mls/hr IV UD PRN PRN Reason: K+ = or < 3.5 Acetaminophen (Ofirmev) 650 mg in 65 mls @ 130 mls/hr IV Q6HP PRN; Protocol PRN Reason: Per Pain Protocol/Fever > 101 Magnesium Sulfate (Magnesium Sulfate) 2 gm in 50 mls @ 50 mls/hr IV UD PRN PRN Reason: MG = or < 1.7 Diltiazem HCl 125 mg/ Sodium (Chloride) 125 mls @ 5 mls/hr IV Q12H [facility]; Protocol Last Admin: 10/02/20 04:09 Dose: Not Given Documented by: Piperacillin Sod/Tazobactam (Sod 2.25 gm/ Dextrose) 50 mls @ 100 mls/hr IV Q6H [facility] Iron Carb/Multivit/[place]/Folic Acid (Multivit,Ther Iron,Ca,Fa & Min 1 Tablet) 1 tab PO DAILY [facility] Last Admin: 10/02/20 09:36 Dose: 1 tab Documented by: Melatonin (Melatonin 3 Mg Tablet) 3 mg PO HSP PRN PRN Reason: Insomnia Metoprolol Tartrate (Metoprolol Tartrate 5 Mg/5 Ml Vial) 5 mg IV Q5M PRN PRN Reason: Heart Rate > 140 bpm Ondansetron HCl (Ondansetron 4 Mg Odt Tablet) 4 mg SL Q4-6HP PRN; Protocol PRN Reason: Nausea And Vomiting Ondansetron HCl (Ondansetron 4 Mg/2 Ml Vial) 4 mg IV Q4-6HP PRN; Protocol PRN Reason: Nausea And Vomiting Polyethylene Glycol (Polyethylene Glycol 3350 17 Gm Packet) 17 gm PO DAILYP PRN PRN Reason: Constipation Potassium Chloride (Potassium Chloride 20 Meq Packet) 40 meq PO DAILYP PRN PRN Reason: K+ < 3.5 Senna/Docusate Sodium (Sennosides/Docusate Sodium 1 Tab Tablet) 1 tab PO HS [facility] Last Admin: 10/02/20 00:44 Dose: Not Given Documented by: Sodium Chloride (0.9 % Sodium Chloride 10 Ml Syringe) 10 ml IV Q8 [facility] Last Admin: 10/02/20 05:22 Dose: 10 ml Documented by: Thiamine HCl (Thiamine 100 Mg Tablet) 100 mg PO DAILY [facility] Last Admin: 10/02/20 09:35 Dose: 100 mg Documented by: A/P Narrative A/P Narrative: * Acute ischemic left parietal lobe CVA- Continue aspirin/statin. History of atrial fibrillation and high risk cardioembolic CVA. Check MRI/echocardiogram. Consider anticoagulation in 5 to 7 days CVA prophylaxis if no evidence of large CVA. Initiate aggressive stroke rehab/neurochecks therapies. * A. fib-new onset. Continue rate control measures. Continue beta-aleyda/CCB * Right upper lobe pneumonia on CT -on antibiotic coverage * Acute cystitis-on antibiotic coverage * History of hypertension continue amlodipine/metoprolol after 24 hours maintenance of permissive hypertension * History of bronchiectasis follows up with pulmonology Dr. Carey. On 2 L oxygen at night. Continue bronchodilators * Hypertension continue benazepril/metoprolol * Hypothyroidism continue thyroxine Plan * Continue neurochecks/await MRI/echocardiogram * Aspirin statin/PT OT * Rate control measures * Consider anticoagulation in 5 to 7 days for underlying A. fib and risk of cardioembolic CVA * Pre-existing medical condition management home meds * PT OT/nutrition support/aggressive therapies Time Spent With Patient Time: Total time spent is greater than 50% in coordination of care (as documented) at patient's floor/unit and/or counseling patient: QUALITY Stroke Onset of Symptoms Date: 09/29/20 Onset of Symptoms Time: 16:00 Symptom Onset Unknown: No VTE Deep Vein Thrombosis/Pulmonary Embolism Present on Admission: No
[2020-10-02] MEDS: DILTIAZEM 30 MG TABLET PO SCH ×3 (11:48→23:07)
[2020-10-02] MEDS: PIPERACILLIN SODIUM/TAZOBACTAM 2.25 GM in DEXTROSE 5% IN WATER 50 ML IV SCH ×3 (11:48→23:07)
--- NOTE | 2020-10-02 12:14 | Magnetic Resonance Report ---
History: New stroke symptoms developing last Thursday, with difficulty speaking. This has partially resolved. TECHNIQUE: Multiplanar imaging was performed using multiple pulse sequences. FINDINGS: There is an acute nonhemorrhagic infarct anteriorly and laterally in the left parietal lobe. This involves both cortex and subcortical white matter. It has increased signal on diffusion and lack of signal on ADC map. There is mild edema in this region. It measures approximately 2.2 x 3.6 cm in size. This was seen on the previous unenhanced head CT done on 10/01/20. This is more apparent on MRI and the size is larger than was appreciated on CT. No other infarct is present. There is no intracranial mass or hemorrhage. The T2 and FLAIR sequences reveal presence of several small scattered white matter lesions in the centrum semiovale throughout the frontal and parietal lobes bilaterally. These have no restricted diffusion or mass effect. There is relatively little atrophy. The ventricles are normal in size. No abnormal extra-axial fluid collection is present. IMPRESSION: Moderate size acute cortical infarct laterally in the left parietal lobe. Mild to moderate white matter disease in the frontal and parietal lobes which may be age-related ischemia or degeneration Interpreted and Authenticated by: Kin Guzman 10/02/20
--- NOTE | 2020-10-02 12:48 | Internal Med Progress Note ---
SUBJECTIVE Subjective Patient information: Note initiated : 10/03/20 at 12:40 pm Service Date, if different from initiated Date: [] Patient: Jade Todd a 80 y/o F admitted on 10/01/20 for possible TIA. Chief Complaint: [] Interval history: Ms. Todd is a 80 year old F with history of bronchiectasis on nocturnal oxygen/HTN/hypothyroidism who presents to the ER with 2 days onset of strokelike symptoms including difficulty expressing herself and weakness. Patient's daughter Helena who lives in [place] became concerned and drove to her home at [place] after she talked to her on phone. She tried to work with the symptoms for a couple of days but did not seek medical help however with increasing concerns from continued speech deficits she brought her to the ER for evaluation. Initial work-up in the ER was consistent with acute CVA on CT head. Patient was beyond the window for TPA. Neurology was consulted and recommended hospitalization for further work-up of CVA. Patient was started on aspirin.The patient was accompanied by her daughter. She was able to answer most the questions. She denied double vision/seizure-like symptoms/thunderclap headache/tearing neck pain/incontinence or unilateral weakness. She denied abnormal sensation but endorses to difficulty word finding. 10/02-patient seen in room. Clinically improved since previous day. Systolic blood pressure in 160s. Currently on aspirin/statin. No overnight fever chills. MRI echo done this morning. Daughter at bedside. Discussed treatment plan including initiation of anticoagulation in the next 7 to 10 days depending on size of CVA and to minimize chance of hemorrhagic conversion. Remains in atrial fibrillation rate controlled. Restarted on home medications. Continuing antibiotics for right upper lobe pneumonia. Mild pyuria on antibiotic coverage. Pending cultures. Head: Atraumatic, normal inspection. Eyes: normal appearance, no scleral icterus. Neck: full ROM Respiratory: no respiratory distress. Cardiovascular: normal rate and rhythm, S1, S2. GI/Abdominal: soft, nontender, no guarding. Extremities: full range of motion, nontender. Neurological: CN II-XII intact, intact motor, intact sensation. Psychiatric: normal mood. Skin: warm, normal color Constitutional Vitals: Vital Signs Temp Pulse Resp BP Pulse Ox 98.4 F 79 16 98/68 97 10/02/20 03:10 10/02/20 09:37 10/02/20 09:37 10/02/20 04:01 10/02/20 09:37 Period Temp Pulse Resp BP Sys/[place] Pulse Ox Last 24 Hr 97.5 F-99.1 F 62-148 12-37 98-181/61-148 91-99 Intake and Output 10/01/20 10/02/20 10/02/20 21:59 05:59 13:59 Intake Total 575 50 Output Total 300 Balance 575 -250 Weight 58.967 kg 59.874 kg Intake & Output: Intake & Output 10/01/20 10/02/20 10/02/20 21:59 05:59 13:59 Intake Total 575 50 Output Total 300 Balance 575 -250 Weight 58.967 kg 59.874 kg Intake: IV 100 50 Zosyn 2.25 gm In Dextrose 5% in 50 Water 50 ml @ 100 mls/hr IV Q6H [facility] Rx#:[id number] Zosyn 3.375 gm In Dextrose 5% 100 in Water 50 ml @ 100 mls/hr IV Q6H [facility] Rx#:[id number] Oral 475 Output: Void Amount 300 Other: Meal [place] sandwich Percent of Meal Consumed 100% Feeding Ability Independent Stool Size Small Stool Color Brown Stool Consistency Formed # Voids 1 # Bowel Movements 1 OBJ DATA Labs CBC & Chem 7: 10/02/20 04:16 10/02/20 04:16 Labs: Abnormal Lab Results 10/02/20 10/02/20 10/01/20 04:16 04:16 16:35 RBC 3.79 L Hgb 11.8 L [place] % (Auto) 13.2 H [place] # (Auto) 1.06 H Creatinine 1.2 H Urine Appearance Hazy A Ur Leukocyte Esterase 500 A Urine WBC 34 H 10/01/20 15:27 RBC 3.91 L Hgb [place] % (Auto) 12.3 H [place] # (Auto) 0.96 H Creatinine Urine Appearance Ur Leukocyte Esterase Urine WBC Meds: Medications Acetaminophen (Acetaminophen 325 Mg Tablet) 650 mg PO Q4-6HP PRN; Protocol PRN Reason: Per Pain Protocol/Fever > 101 Albuterol/Ipratropium (Ipratropium/Albuterol 3 Ml Ampul.Neb) 3 ml NEB Q4HRT [facility] Last Admin: 10/02/20 09:26 Dose: 3 ml Documented by: Aspirin (Aspirin 81 Mg Tab.Chew) 324 mg CHEWED DAILY [facility] Last Admin: 10/02/20 09:54 Dose: 324 mg Documented by: Atorvastatin Calcium (Atorvastatin 20 Mg Tablet) 40 mg PO HS [facility] Last Admin: 10/02/20 00:43 Dose: Not Given Documented by: Bisacodyl (Bisacodyl 10 Mg Supp.Rect) 10 mg [place] Q2-3DAYS PRN PRN Reason: Constipation Budesonide (Budesonide 0.5 Mg/2 Ml Ampul.Neb) 0.5 mg NEB Q12 [facility] Last Admin: 10/02/20 09:27 Dose: 0.5 mg Documented by: Calcium Carbonate/Glycine (Calcium Carbonate 500 Mg Tab.Chew) 500 mg CHEWED DAILY [facility] Cyanocobalamin (Cyanocobalamin (Vitamin B-12) 500 Mcg Tablet) 1,000 mcg PO BID [facility] Stop: 10/06/20 09:01 Last Admin: 10/02/20 09:35 Dose: 1,000 mcg Documented by: Diltiazem HCl (Diltiazem 30 Mg Tablet) 30 mg PO Q6H [facility] Last Admin: 10/02/20 11:48 Dose: 30 mg Documented by: Docusate Sodium (Docusate Sodium 100 Mg Capsule) 100 mg PO BID [facility] Last Admin: 10/02/20 09:35 Dose: 100 mg Documented by: Furosemide (Furosemide 20 Mg Tablet) 20 mg PO QDAY [facility] Heparin Sodium (Porcine) (Heparin 5,000 Unit/Ml Vial) 5,000 unit SQ Q12 [facility] Last Admin: 10/02/20 09:35 Dose: 5,000 unit Documented by: Hydralazine HCl (Hydralazine 20 Mg/Ml Vial) 10 mg IV Q4-6HP PRN PRN Reason: Hypertension Potassium Chloride 40 meq/ (Dextrose) 520 mls @ 130 mls/hr IV UD PRN PRN Reason: K+ = or < 3.5 Acetaminophen (Ofirmev) 650 mg in 65 mls @ 130 mls/hr IV Q6HP PRN; Protocol PRN Reason: Per Pain Protocol/Fever > 101 Magnesium Sulfate (Magnesium Sulfate) 2 gm in 50 mls @ 50 mls/hr IV UD PRN PRN Reason: MG = or < 1.7 Diltiazem HCl 125 mg/ Sodium (Chloride) 125 mls @ 5 mls/hr IV Q12H [facility]; Protocol Last Admin: 10/02/20 10:50 Dose: Not Given Documented by: Piperacillin Sod/Tazobactam (Sod 2.25 gm/ Dextrose) 50 mls @ 100 mls/hr IV Q6H [facility] Last Infusion: 10/02/20 12:26 Dose: Infused Documented by: Iron Carb/Multivit/[place]/Folic Acid (Multivit,Ther Iron,Ca,Fa & Min 1 Tablet) 1 tab PO DAILY [facility] Last Admin: 10/02/20 09:36 Dose: 1 tab Documented by: Levothyroxine Sodium (Levothyroxine 50 Mcg Tablet) 50 mcg PO ACB [facility] Lisinopril (Lisinopril 20 Mg Tablet) 40 mg PO DAILY [facility] Melatonin (Melatonin 3 Mg Tablet) 3 mg PO HSP PRN PRN Reason: Insomnia Metoprolol Succinate (Metoprolol Succinate 50 Mg Tab.Xl.24h) 50 mg PO DAILY [facility] Metoprolol Tartrate (Metoprolol Tartrate 5 Mg/5 Ml Vial) 5 mg IV Q5M PRN PRN Reason: Heart Rate > 140 bpm Ondansetron HCl (Ondansetron 4 Mg Odt Tablet) 4 mg SL Q4-6HP PRN; Protocol PRN Reason: Nausea And Vomiting Ondansetron HCl (Ondansetron 4 Mg/2 Ml Vial) 4 mg IV Q4-6HP PRN; Protocol PRN Reason: Nausea And Vomiting Glycopyrrolate- Formoterol [Bevespi Aerosphere] 9 Mcg-4. 8 Mcg Hfa Inhaler 2 dose INH BID [facility] Polyethylene Glycol (Polyethylene Glycol 3350 17 Gm Packet) 17 gm PO DAILYP PRN PRN Reason: Constipation Potassium Chloride (Potassium Chloride 20 Meq Packet) 40 meq PO DAILYP PRN PRN Reason: K+ < 3.5 Potassium Chloride (Potassium Chloride 20 Meq Tablet) 20 meq PO [facility] Senna/Docusate Sodium (Sennosides/Docusate Sodium 1 Tab Tablet) 1 tab PO HS [facility] Last Admin: 10/02/20 00:44 Dose: Not Given Documented by: Sodium Chloride (0.9 % Sodium Chloride 10 Ml Syringe) 10 ml IV Q8 [facility] Last Admin: 10/02/20 05:22 Dose: 10 ml Documented by: Thiamine HCl (Thiamine 100 Mg Tablet) 100 mg PO DAILY [facility] Last Admin: 10/02/20 09:35 Dose: 100 mg Documented by: A/P Narrative A/P Narrative: Assessment: 80 year old F with history of bronchiectasis on nocturnal oxygen/HTN/hypothyroidism who presents to the ED with 2 days of stroke-like symptoms including expressive aphasia and weakness and found to have a moderate size acute ischemic left parietal lobe stroke. The patient also has atrial fibrillation which is apparently a new diagnosis and likely the cause of the CVA as she was not anticoagulated when she had the stroke. * Acute ischemic left parietal lobe CVA- Continue aspirin/statin. History of atrial fibrillation and high risk cardioembolic CVA. Check MRI/echocardiogram. Consider anticoagulation in 5 to 7 days CVA prophylaxis if no evidence of large CVA. Initiate aggressive stroke rehab/neurochecks therapies. * A. fib-new onset. Continue rate control measures. Continue beta-aleyda/CCB * Right upper lobe pneumonia on CT -on antibiotic coverage * Acute cystitis-on antibiotic coverage * History of hypertension continue amlodipine/metoprolol after 24 hours maintenance of permissive hypertension * History of bronchiectasis follows up with pulmonology Dr. Carey. On 2 L oxygen at night. Continue bronchodilators * Hypertension continue benazepril/metoprolol * Hypothyroidism continue thyroxine Plan * Continue neurochecks/await MRI/echocardiogram * Aspirin statin/PT OT * Rate control measures * Consider anticoagulation in 5 to 7 days for underlying A. fib and risk of cardioembolic CVA * Pre-existing medical condition management home meds * PT OT/nutrition support/aggressive therapies Time Spent With Patient Time: Total time spent is greater than 50% in coordination of care (as documented) at patient's floor/unit and/or counseling patient: QUALITY Stroke Onset of Symptoms Date: 09/29/20 Onset of Symptoms Time: 16:00 Symptom Onset Unknown: No VTE Deep Vein Thrombosis/Pulmonary Embolism Present on Admission: No
[2020-10-02] MEDS: GLYCOPYRROLATE FORMOTEROL INH SCH (20:14)
[2020-10-03] MEDS: IPRATROPIUM/ALBUTEROL 3 ML AMPUL.NEB NEB SCH ×4 (03:31→11:56)
[2020-10-03] MEDS: 0.9 % SODIUM CHLORIDE 10 ML SYRINGE IV SCH (06:29)
[2020-10-03] MEDS: PIPERACILLIN SODIUM/TAZOBACTAM 2.25 GM in DEXTROSE 5% IN WATER 50 ML IV SCH ×2 (06:29→11:13)
[2020-10-03] MEDS: DILTIAZEM 30 MG TABLET PO SCH ×2 (06:31→11:56)
[2020-10-03 07:22] LABS: Basophils # (Auto) 0.07 K/mcL (0.00-0.20); Eosinophils # (Auto) 0.23 K/mcL (0.00-0.70); Eosinophils % (Auto) 3.4 % (0.0-7.0); Hematocrit 34.5 % (36.0-48.0); Hemoglobin 11.3 g/dL (12.0-15.0); Lymphocytes # (Auto) 1.24 K/mcL (1.50-4.80); Lymphocytes % (Auto) 18.3 % (15.0-49.0); Mean Cell Volume 96.4 fL (80.0-100.0); Mean Corpuscular HGB Conc 32.8 g/dL (31.0-36.0); Mean Platelet Volume 9.9 fL (7.4-10.4); Monocytes # (Auto) 0.71 K/mcL (0.10-0.90); Monocytes % (Auto) 10.5 % (1.0-12.0); Neutrophils % (Auto) 66.8 % (38.0-78.0); Platelet Count 248 K/mcL (140-440); RBC 3.58 M/mcL (4.00-5.20); Red Cell Distribution Width 12.2 % (11.5-14.5); WBC 6.8 K/mcL (4.5-11.0)
[2020-10-03] MEDS: BUDESONIDE 0.5 MG/2 ML AMPUL.NEB NEB SCH (07:25)
[2020-10-03] MEDS ORDERED: LEVOTHYROXINE 50 MCG TABLET PO SCH (07:30)
[2020-10-03] MEDS ORDERED: POTASSIUM CHLORIDE 20 MEQ TABLET PO SCH (08:00)
[2020-10-03 08:07] LABS: ALT/SGPT 14 U/L (<40); AST/SGOT 21 U/L (<32); Albumin 3.8 gm/dL (3.2-5.2); Albumin/Globulin Ratio 1.4 (1.0-2.3); Alkaline Phosphatase 57 U/L (39-117); Bilirubin,Direct < 0.2 mg/dL (0-0.3); Bilirubin,Total 0.4 mg/dL (0.1-1.0); Blood Urea Nitrogen 15 mg/dL (8-23); Carbon Dioxide 28 mmol/L (22-30); Chloride 104 mmol/L (96-108); Globulin 2.7 gm/dL (2.2-3.7); Glomerular Filtration Rate 48; Glucose 93 mg/dL (70-105); Lactate Dehydrogenase 166 U/L (135-225); Phosphorous 3.6 mg/dL (2.5-4.5); Triglycerides 60 mg/dL (<150); Uric Acid 4.1 mg/dL (2.5-8.0)
[2020-10-03] MEDS: MULTIVIT,THER IRON,CA,FA & MIN 1 TABLET PO SCH (08:19)
[2020-10-03] MEDS: DOCUSATE SODIUM 100 MG CAPSULE PO SCH (08:19)
[2020-10-03] MEDS: CYANOCOBALAMIN (VITAMIN B-12) 500 MCG TABLET PO SCH (08:19)
[2020-10-03] MEDS: ASPIRIN 81 MG TAB.CHEW CHEWED SCH (08:20)
[2020-10-03] MEDS: GLYCOPYRROLATE FORMOTEROL INH SCH (08:20)
[2020-10-03] MEDS: THIAMINE 100 MG TABLET PO SCH (08:20)
[2020-10-03] MEDS: HEPARIN 5,000 UNIT/ML VIAL SQ SCH (08:20)
[2020-10-03] MEDS ORDERED: METOPROLOL SUCCINATE 50 MG TAB.XL.24H PO SCH (09:00)
[2020-10-03] MEDS ORDERED: CALCIUM CARBONATE 500 MG TAB.CHEW CHEWED SCH (09:00)
[2020-10-03] MEDS ORDERED: NON FORMULARY MEDICATION 1 DOSE MISCELL (Multivitamin tablet) PO SCH (09:00)
[2020-10-03] MEDS ORDERED: LISINOPRIL 20 MG TABLET PO SCH (09:00)
[2020-10-03] MEDS ORDERED: FUROSEMIDE 20 MG TABLET PO SCH (09:00)
[2020-10-03] MEDS: DILTIAZEM 125 MG in 0.9 % SODIUM CHLORIDE 100 ML IV SCH (09:57)
--- NOTE | 2020-10-03 10:26 | Discharge Summary ---
Discharge Provider Provider Patient information: Note initiated : 10/03/20 at 10:19 am Service Date, if different from initiated Date: [] Patient: Jade Todd 80 y/o F admitted on 10/01/20 for possible TIA. Chief Complaint: [] Date of admission: 10/01/20 22:02 Discharge date: 10/03/20 Primary care physician: Yahaira Goff Consults: 10/01/20 Consult to Physician [CONS] Stat Comment: Consulting Provider: Adithya Yang Reason For Exam: Physician to Consult Discharge Meds Discharge Medications Home Medications benazepril 40 mg PO DAILY 04/02/16 [History Confirmed 10/01/20 Last Taken 10/01/20 09:00] estradiol 0.25 mg PO DAILY 04/02/16 [History Confirmed 10/01/20 Last Taken 10/01/20 09:00] potassium chloride 20 meq PO DAILY 04/02/16 [History Confirmed 10/01/20 Last Taken 10/01/20 09:00] albuterol sulfate 2.5 mg INHALATION Q6H PRN ml 01/22/18 [History Confirmed 10/01/20 Last Taken Unknown] furosemide 20 mg tablet 20 mg PO QDAY 01/22/18 [History Confirmed 10/01/20 Last Taken 10/01/20 09:00] levothyroxine 50 mcg tablet 50 mcg PO QDAY 01/22/18 [History Confirmed 10/01/20 Last Taken 10/01/20 07:00] multivitamin 1 tab PO QDAY 01/22/18 [History Confirmed 10/01/20 Last Taken 10/01/20 09:00] calcium carbonate 600 mg calcium (1,500 mg) tablet 600 mg PO QDAY tab 02/09/18 [History Confirmed 10/01/20 Last Taken 10/01/20 09:00] glycopyrrolate 9 mcg-formoterol 4.8 mcg HFA aerosol inhaler 2 puff INHALATION BID #10.7 g 08/31/20 [Rx Confirmed 10/01/20 Last Taken 09/30/20 21:00] apixaban [Eliquis] 5 mg PO BID #60 tab 10/03/20 [Rx Last Taken Unknown] atorvastatin 40 mg PO HS #30 tab 10/03/20 [Rx Last Taken Unknown] cefuroxime axetil 500 mg PO BID 4 Days #8 tab 10/03/20 [Rx Last Taken Unknown] metoprolol tartrate [Lopressor] 50 mg PO BID #60 tab 10/03/20 [Rx Last Taken Unknown] COURSE Hospital Course Hospital course: Ms. Todd is a 80 year old F with history of bronchiectasis on nocturnal oxygen/HTN/hypothyroidism who presents to the ER with 2 days onset of strokelike symptoms including difficulty expressing herself and weakness. Patient's daughter Helena who lives in [place] became concerned and drove to her home at [place] after she talked to her on phone. She tried to work with the symptoms for a couple of days but did not seek medical help however with increasing concerns from continued speech deficits she brought her to the ER for evaluation. Initial work-up in the ER was consistent with acute CVA on CT head. Patient was beyond the window for TPA. Tele Neurology was consulted and recommended hospitalization for further work-up of CVA. Patient was started on aspirin.The patient was accompanied by her daughter. She was able to answer most the questions. She denied double vision/seizure-like symptoms/thunderclap headache/tearing neck pain/incontinence or unilateral weakness. She denied abnormal sensation but endorses to difficulty word finding. 10/02-patient seen in room. Clinically improved since previous day. Systolic blood pressure in 160s. Currently on aspirin/statin. No overnight fever chills. MRI echo done this morning. Daughter at bedside. Discussed treatment plan including initiation of anticoagulation in the next 7 to 10 days depending on size of CVA and to minimize chance of hemorrhagic conversion. Remains in atrial fibrillation rate controlled. Restarted on home medications. Continuing antibiotics for right upper lobe pneumonia. 10/03 mild expressive aphasia, no swallowing difficulties. MRI shows moderate size parietal stroke. ECHO still pending. Atrial fibrillatino is rate controlled on Cardizem. She wants to go home, doing well overall. Her daughter will accompany her and help out for awhile. Outpatient speech therapy appropriate for rehab. Plan to start eliquis 7 days after stroke onset, this Thursday. Will transition to Lopressor for rate control. Continue Statin. Follow up with neurology and PCP. Discharged to home with daughter. Post hospital follow up; -Atrial fibrillation follow up-rate control on Lopressor, anticoagulation with Eliquis, pending ECHO results. -Follow up with neurology for post ischemic stroke care-discharged on Eliquis and Atorvastatin. -Follow up pending ECHO for stroke and new diagnosis of atrial fibrillation. . -Complete 5 days of antibiotic (Cefuroxime) for right upper lobe pneumonia. Head: Atraumatic, normal inspection. Eyes: normal appearance, no scleral icterus. Neck: full ROM Respiratory: no respiratory distress. Cardiovascular: normal rate and rhythm, S1, S2. GI/Abdominal: soft, nontender, no guarding. Extremities: full range of motion, nontender. Neurological: mild expressive aphasia, CN II-XII intact, intact motor, intact sensation. Psychiatric: normal mood. Skin: warm, normal color Discharge diagnosis: Ischemic stroke Secondary discharge diagnosis: Atrial fibrillation Expressive aphasia Time Spent with Patient Time attestation: Total time spent providing and/or coordinating discharge services: EXAM Constitutional Vitals: Temp Pulse Resp BP Pulse Ox 98.3 F 76 15 127/84 97 10/03/20 08:01 10/03/20 09:29 10/03/20 08:01 10/03/20 08:01 10/03/20 09:29 Discharge Data Data Completed and Pending Labs on day of discharge: Labs from last 24 hours 10/03/20 10/03/20 05:36 05:36 WBC 6.8 RBC 3.58 L Hgb 11.3 L Hct 34.5 L MCV 96.4 MCH 31.6 MCHC 32.8 RDW 12.2 Plt Count 248 MPV 9.9 Neut % (Auto) 66.8 Lymph % (Auto) 18.3 [place] % (Auto) 10.5 Eos % (Auto) 3.4 Baso % (Auto) 1.0 Lymph # (Auto) 1.24 L [place] # (Auto) 0.71 Eos # (Auto) 0.23 Baso # (Auto) 0.07 Absolute Neutrophils 4.52 Sodium 140 Potassium 3.9 Chloride 104 Carbon Dioxide 28 Anion Gap 8.0 BUN 15 Creatinine 1.1 GFR Calculation 48 Glucose 93 Uric Acid 4.1 Calcium 9.0 Phosphorus 3.6 Magnesium 1.9 Total Bilirubin 0.4 Direct Bilirubin < 0.2 GGT 17 AST 21 ALT 14 Alkaline Phosphatase 57 Lactate Dehydrogenase 166 Total Protein 6.5 Albumin 3.8 Globulin 2.7 Albumin/Globulin Ratio 1.4 Triglycerides 60 Preliminary micro results at discharge 10/01/20 16:35 Urine Culture - Preliminary Urine - Clean Void Mid-Stream Discharge Plan Patient/Caregiver Discharge Instructions Activity: increase activity as tolerated Diet: Regular Diet Instructions: Metoprolol (By mouth), Atorvastatin (By mouth), Apixaban (By mouth), A-fib (Atrial Fibrillation) (GEN), Ischemic Stroke (GEN) Activity Restrictions/Additional Instructions: A referral is being sent to [facility], they will contact you to schedule an appointment time. if any questions. This discharge packet is provided to you to help keep you informed about your care. We want to ensure you get everything you need when you go home. You will also be receiving a call from us in a few days to follow up with you and see how you are doing since your discharge. This gives us a chance to listen to any concerns you maybe experiencing since you were discharged or any additional needs you may have, as well as providing us feedback on your care experience. We strive to always provide excellent care and thank you for your feedback and for choosing [facility]. Prescriptions: New atorvastatin 20 mg Tablet 40 mg PO HS Qty: 30 RF: 6 metoprolol tartrate [Lopressor] 50 mg tablet 50 mg PO BID Qty: 60 RF: 6 Eliquis 5 mg tablet 5 mg PO BID Qty: 60 RF: 6 cefuroxime axetil 500 mg tablet 500 mg PO BID 4 Days Qty: 8 RF: 0 Continued Bevespi Aerosphere 9-4.8 mcg HFA aerosol inhaler 2 puff inhalation BID Qty: 10.7 RF: 0 levothyroxine [Levoxyl] 50 mcg tablet 50 mcg PO QDAY RF: 0 furosemide [Lasix] 20 mg tablet 20 mg PO QDAY RF: 0 albuterol sulfate 2.5 mg /3 mL (0.083 %) solution for nebulization 2.5 mg INHALATION Q6H PRN (Reason: Shortness Of Breath) RF: 0 multivitamin tablet 1 tab PO QDAY RF: 0 calcium carbonate [Calcium 600] 600 mg calcium (1,500 mg) tablet 600 mg PO QDAY RF: 0 potassium chloride 20 MEQ tablet 20 meq PO DAILY RF: 0 estradiol 0.5 MG tablet 0.25 mg PO DAILY RF: 0 benazepril 40 MG tablet 40 mg PO DAILY RF: 0 Discontinued amlodipine 5 mg tablet 5 mg PO DAILY RF: 0 metoprolol succinate 50 MG capsule,sprinkle,ER 24hr 50 mg PO DAILY RF: 0 Follow Up Plan Follow up with: Yahaira Goff MD [Primary Care Provider] - 10/10/20 9:45 am Nick Marcano MD [Physician] - (Post hospital discharge referral for ischemic stroke probably due to atrial fibrillation. ) Patient Disposition: Home, Self-Care Prognosis: Good Rehab Potential: Good Overall status at discharge: patient is progressing back to baseline Discharge Orders: Discharge Order (Routine); Ordered 10/03/20 Ordered By: Usman Amaya Discharge Comment: Outpatient speech therapy QUALITY VTE Deep Vein Thrombosis/Pulmonary Embolism Present on Admission: No
== END 2020-10-03 11:55 | disposition home or self-care (01) | DRG 64 ==
LOC: ED 14:55 → ICU 22:02
PROVIDERS: ADMIT Internal Medicine; ATTEND Internal Medicine